=== PATIENT | female | born 1955 | race Caucasian/White ===

== ENCOUNTER 2017-05-29 22:57 | Emergency (ER) | payer OTHER ==
[~2017-05-29] VITALS: Ht 167.6 cm; Wt 55.8 kg
[2017-05-29] MEDS ORDERED: HYDROXYCHLOROQ200 MG (23:12)
[2017-05-30] MEDS ORDERED: MEDROL4 MG PO (02:31)
[2017-05-30] MEDS ORDERED: BENADRYL25 MG PO (02:31)
== END 2017-05-30 03:10 | disposition home or self-care (01) ==
LOC: ER 22:57
DX: T78.49XA Other allergy, initial encounter (principal); R21 Rash and other nonspecific skin eruption